=== PATIENT | male | born 1935 | race African-American/Black ===

== ENCOUNTER 2017-08-27 11:26 | Inpatient (IN) | payer MEDICARE, OTHER ==
[~2017-08-27] VITALS: Ht 167.6 cm; Wt 64.4 kg
[2017-08-27] VITALS (36 sets, daily range): BP systolic 75–148; BP diastolic 43–99
[2017-08-27] MEDS ORDERED: PIPERACILLIN/TAZ 3.375G PREMIX 50 ML IV ONE (12:15)
[2017-08-27] MEDS ORDERED: VANCOMYCIN 1 G PREMIX 200 ML IV SCH (12:15)
[2017-08-27] MEDS ORDERED: ACETAMINOPHEN 650MG SUPP PR ONE (12:15)
[2017-08-27 12:22] LABS: BASOPHILS % 0.6 % (0.0-2.0); EOSINOPHILS % 0.1 % (0.0-5.0); HEMOGLOBIN. 11.8 g/dL (14.0-18.0); LYMPHOCYTES % 14.8 % (20.0-50.0); MEAN CORPUSCULAR HEMOGLOBIN 27.1 pg (28.0-32.0); MEAN CORPUSCULAR VOLUME 82.7 fL (80.0-94.0); MEAN PLATELET VOLUME 8.8 fl (7.4-10.4); NEUTROPHILS % 72.5 % (40.0-76.0); PLATELET 291 x1000/uL (130-400); RED BLOOD CELL COUNT 4.35 mill/uL (4.7-6.1); RED CELL DISTRIBUTION WIDTH 16.6 % (11.6-14.6)
[2017-08-27] MEDS ORDERED: PROPOFOL 10MG/ML 100ML 100 ML IV ONE (12:30)
[2017-08-27] MEDS ORDERED: SUCCINYLCHOLINE CHLORIDE 200MG/10ML VIAL IV ONE ×2 (12:30→14:03)
[2017-08-27] MEDS ORDERED: ETOMIDATE 2MG/ML 10ML VIAL IV ONE ×2 (12:30→14:03)
[2017-08-27] MEDS ORDERED: LORAZEPAM 2MG/ML CPJ IV ONE (12:30)
[2017-08-27 12:31] LABS: INR 1.1; PARTIAL THROMBOPLASTIN TIME 26.8 sec (23.4-31.0); PROTHROMBIN TIME 11.3 sec (9.4-11.6)
[2017-08-27 12:43] LABS: CHLORIDE 100 mEq/L (98-107)
[2017-08-27 12:44] LABS: TROPONIN I 0.02 ng/mL (0.00-0.04)
[2017-08-27 12:52] LABS: CARBON DIOXIDE 41 mEq/L (21-32)
[2017-08-27] MEDS ORDERED: KCL 20MEQ/100ML PREMIX 100 ML IV ONE (13:00)
[2017-08-27 13:07] LABS: BG BASE EXCESS 12.8 mmol/L (-2.0-2.0); BG CARBOXYHEMOGLOBIN 0.2 % (0.5-1.5); BG DEOXYHEMOGLOBIN 2.5 % (0.0-5.0); BG HCO3 ACT 35.1 mmol/L (22.0-26.0); BG OXYGEN SATURATION 97.5 % (92.0-98.5); BG OXYHEMOGLOBIN 97.3 % (94.0-97.0); BG PCO2 36.6 mmHg (35.0-45.0); BG SAMPLE SITE RIGHT RADIAL; BG TIDAL VOLUME(mL) 550 mL; BG TOTAL HEMOGLOBIN 14.2 g/dL (12.0-18.0); BG VENT MODE VENT - A/C; BG VENT RATE 14 set
[2017-08-27] MEDS ORDERED: DILTIAZEM HCL 5MG/ML 5ML VIAL IV ONE (13:15)
[2017-08-27] MEDS ORDERED: ONDANSETRON HCL 4MG/2ML VIAL IV PRN (14:15)
[2017-08-27] MEDS ORDERED: ACETAMINOPHEN 650MG SUPP PR PRN (14:15)
[2017-08-27] MEDS ORDERED: DILTIAZEM HCL 125 MG in DEXT 5% WATER 100 ML IV PRN (14:15)
[2017-08-27] MEDS ORDERED: PHENYLEPHRINE 10 MG in DEXT 5% WATER 249 ML IV PRN (14:15)
[2017-08-27] MEDS ORDERED: CLONIDINE 0.1MG TABLET PO PRN (14:15)
[2017-08-27 14:30] LABS: CLARITY URINE CLEAR (CLEAR); COLOR URINE YELLOW (YELLOW); GLUCOSE URINE NEGATIVE (NEGATIVE); KETONES URINE NEGATIVE (NEGATIVE); LEUKOCYTE ESTERASE URINE NEGATIVE (NEGATIVE); NITRITE URINE NEGATIVE (NEGATIVE); OCCULT BLOOD URINE NEGATIVE (NEGATIVE); PROTEIN URINE 1+ (NEGATIVE); UROBILINOGEN URINE 0.2 E.U./dL (0.2-1.0)
[2017-08-27] MEDS ORDERED: PROPOFOL 10MG/ML 100ML 100 ML IV PRN (14:30)
[2017-08-27] MEDS ORDERED: IPRATROPIUM/ALBUTEROL 0.5-3(2.5)MG/3ML NEB HHN PRN (14:30)
[2017-08-27 15:01] LABS: CREATINE KINASE 90 IU/L (39-308)
[2017-08-27 15:14] LABS: *AMPHETAMINES SCREEN URINE NEGATIVE (NEGATIVE); *BARBITURATES SCREEN URINE NEGATIVE (NEGATIVE); *BENZODIAZEPINES SCREEN URINE NEGATIVE (NEGATIVE); *COCAINE SCREEN URINE NEGATIVE (NEGATIVE); CANNABINOID URINE SCREEN NEGATIVE (NEGATIVE); METHADONE URINE SCREEN NEGATIVE (NEGATIVE); OPIATES URINE SCREEN NEGATIVE (NEGATIVE); PHENCYCLIDINE URINE SCREEN NEGATIVE (NEGATIVE)
[2017-08-27 15:44] LABS: HEPATITIS B SURFACE ANTIGEN NEGATIVE
[2017-08-27] MEDS: DEXT 5%/0.45% NACL 1000ML 1,000 ML IV SCH (15:57)
[2017-08-27 16:12] LABS: HEPATITIS B CORE AB IGM NEGATIVE
[2017-08-27 16:14] LABS: HEPATITIS A AB IGM NEGATIVE (NEGATIVE)
[2017-08-27] MEDS: PANTOPRAZOLE SODIUM 40 MG/VIAL IV SCH (16:32)
[2017-08-27] MEDS: ENOXAPARIN 40MG/0.4ML SYR SUBCUT SCH (16:32)
[2017-08-27] MEDS ORDERED: KEPP500 NG (17:06)
[2017-08-27] MEDS ORDERED: DIVA-18 NG (17:06)
[2017-08-27] MEDS ORDERED: ASPI-1159 NG (17:06)
[2017-08-27] MEDS ORDERED: METO25TA6 NG (17:06)
[2017-08-27] MEDS ORDERED: LACT1TAB2 NG (17:06)
[2017-08-27] MEDS ORDERED: ACET-2178 NG (17:06)
[2017-08-27] MEDS ORDERED: IPRA3AMP9 HHN (17:06)
[2017-08-27] MEDS ORDERED: MEMA10TA2 NG (17:06)
[2017-08-27] MEDS ORDERED: SIMV80TA70 NG (17:06)
[2017-08-27] MEDS ORDERED: LOV40 SUBCUT (17:06)
[2017-08-27] MEDS ORDERED: MULT-1146 NG (17:06)
[2017-08-27] MEDS ORDERED: IBUP-2028 NG (17:06)
[2017-08-27] MEDS ORDERED: ALBU18HF2 IH (17:06)
[2017-08-27] MEDS ORDERED: NIFE30TA94 NG (17:06)
[2017-08-27] MEDS ORDERED: FURO-151 NG (17:06)
[2017-08-27] MEDS: PHENYLEPHRINE 10 MG in DEXTROSE 5% WATER 250 ML IV PRN ×2 (17:51→21:09)
[2017-08-27] MEDS: PIPERACILLIN/TAZ 3.375G PREMIX 50 ML IV SCH ×2 (18:57→23:58)
[2017-08-27] MEDS: IPRATROPIUM/ALBUTEROL 0.5-3(2.5)MG/3ML NEB HHN SCH (20:30)
[2017-08-28] VITALS (101 sets, daily range): BP systolic 64–169; BP diastolic 41–106
[2017-08-28] MEDS: PHENYLEPHRINE 10 MG in DEXTROSE 5% WATER 250 ML IV PRN ×3 (00:55→14:31)
[2017-08-28] MEDS: DEXT 5%/0.45% NACL 1000ML 1,000 ML IV SCH ×2 (03:40→22:19)
[2017-08-28 05:25] LABS: BASOPHILS % 0.7 % (0.0-2.0); EOSINOPHILS % 0.4 % (0.0-5.0); HEMATOCRIT. 31.8 % (42.0-52.0); HEMOGLOBIN. 10.5 g/dL (14.0-18.0); LYMPHOCYTES % 12.1 % (20.0-50.0); MEAN CORPUSCULAR HEMOGLOBIN 27.4 pg (28.0-32.0); MEAN CORPUSCULAR VOLUME 82.8 fL (80.0-94.0); MEAN PLATELET VOLUME 9.1 fl (7.4-10.4); MONOCYTES % 13.1 % (2.0-8.0); NEUTROPHILS % 73.7 % (40.0-76.0); PLATELET 250 x1000/uL (130-400); RED BLOOD CELL COUNT 3.84 mill/uL (4.7-6.1); RED CELL DISTRIBUTION WIDTH 16.4 % (11.6-14.6)
[2017-08-28] MEDS: PIPERACILLIN/TAZ 3.375G PREMIX 50 ML IV SCH ×3 (05:44→19:49)
[2017-08-28 06:13] LABS: CHLORIDE 99 mEq/L (98-107); LDL CHOLESTEROL 31 mg/dL (5-100)
[2017-08-28 06:16] LABS: HDL CHOLESTEROL 20 mg/dL (40-59); TROPONIN I 0.03 ng/mL (0.00-0.04)
[2017-08-28] MEDS ORDERED: VANCOMYCIN 1 G PREMIX 200 ML IV SCH (07:00)
[2017-08-28 07:22] LABS: CARBON DIOXIDE 40 mEq/L (21-32)
[2017-08-28] MEDS: IPRATROPIUM/ALBUTEROL 0.5-3(2.5)MG/3ML NEB HHN SCH ×3 (07:53→20:08)
[2017-08-28] MEDS ORDERED: DEXTROSE 50% WATER 50ML SYRINGE IV PRN (08:00)
[2017-08-28 08:28] LABS: BG BASE EXCESS 14.1 mmol/L (-2.0-2.0); BG CARBOXYHEMOGLOBIN 0.2 % (0.5-1.5); BG DEOXYHEMOGLOBIN 1.3 % (0.0-5.0); BG FRACTION INSPIRED OXYGEN 60; BG HCO3 ACT 38.3 mmol/L (22.0-26.0); BG METHEMOGLOBIN 1.1 % (0.0-1.5); BG OXYGEN SATURATION 98.7 % (92.0-98.5); BG OXYHEMOGLOBIN 97.4 % (94.0-97.0); BG PCO2 46.3 mmHg (35.0-45.0); BG PH 7.535 (7.350-7.450); BG PO2 197.6 mmHg (75.0-100.0); BG SAMPLE SITE RIGHT RADIAL; BG TIDAL VOLUME(mL) 450 mL; BG TOTAL HEMOGLOBIN 11.1 g/dL (12.0-18.0); BG VENT MODE VENT - A/C; BG VENT RATE 12 set
[2017-08-28] MEDS ORDERED: LIDOCAINE HCL 1% 20ML VIAL (Pyxis) INJ ONE (08:28)
[2017-08-28] MEDS ORDERED: POTASSIUM CHLORIDE INJ 60 MEQ in DEXT 5% WATER 500 ML IV NR (09:30)
[2017-08-28] MEDS: PANTOPRAZOLE SODIUM 40 MG/VIAL IV SCH (09:55)
[2017-08-28] MEDS: ENOXAPARIN 40MG/0.4ML SYR SUBCUT SCH (10:43)
[2017-08-28] MEDS ORDERED: LEVETIRACETAM 500 MG in SODIUM CHLORIDE 0.9% 100 ML IV SCH (10:45)
[2017-08-28] MEDS: BLOOD SUGAR DIAGNOSTIC STRIP TEST SCH ×3 (11:22→20:48)
[2017-08-28] MEDS: INSULIN LISPRO 100 UNITS/ML SUBCUT SCH ×3 (11:23→20:48)
[2017-08-28 11:45] LABS: T4 FREE 1.29 ng/dL (0.76-1.46)
[2017-08-28] MEDS: LEVETIRACETAM 500MG PREMIX 100 ML IV SCH ×2 (11:47→20:47)
[2017-08-28 11:55] LABS: AMMONIA 25 uMol/L (<32)
[2017-08-28 12:09] LABS: VITAMIN B12 SERUM 1080 pg/mL (211-911)
[2017-08-28] MEDS ORDERED: IOHEXOL-350 100 ML BOTTLE ONE (12:50)
[2017-08-28 13:00] LABS: FOLIC ACID (FOLATE) SERUM > 20.00 ng/mL (>5.38)
[2017-08-28] MEDS: VANCOMYCIN 1250MG in DEXTROSE 5% WATER 250ML IV SCH (17:21)
[2017-08-29] VITALS (94 sets, daily range): BP systolic 61–132; BP diastolic 41–86
[2017-08-29] MEDS: PIPERACILLIN/TAZ 3.375G PREMIX 50 ML IV SCH ×5 (01:45→23:37)
[2017-08-29] MEDS: IPRATROPIUM/ALBUTEROL 0.5-3(2.5)MG/3ML NEB HHN SCH ×4 (01:53→19:48)
[2017-08-29 05:10] LABS: BASOPHILS % 0.3 % (0.0-2.0); MEAN PLATELET VOLUME 8.7 fl (7.4-10.4); RED CELL DISTRIBUTION WIDTH 16.1 % (11.6-14.6)
[2017-08-29 05:28] LABS: CARBON DIOXIDE 34 mEq/L (21-32); CHLORIDE 99 mEq/L (98-107); PHOSPHORUS 2.9 mg/dL (2.5-4.9)
[2017-08-29 05:34] LABS: HEMATOCRIT. 28.8 % (42.0-52.0); HEMOGLOBIN. 9.7 g/dL (14.0-18.0); LYMPHOCYTES % 13.8 % (20.0-50.0); MEAN CORPUSCULAR HEMOGLOBIN 27.5 pg (28.0-32.0); MEAN CORPUSCULAR VOLUME 81.8 fL (80.0-94.0); MONOCYTES % 10.7 % (2.0-8.0); NEUTROPHILS % 73.2 % (40.0-76.0); PLATELET 233 x1000/uL (130-400); RED BLOOD CELL COUNT 3.52 mill/uL (4.7-6.1)
[2017-08-29] MEDS: BLOOD SUGAR DIAGNOSTIC STRIP TEST SCH ×4 (05:58→20:13)
[2017-08-29] MEDS: INSULIN LISPRO 100 UNITS/ML SUBCUT SCH ×4 (06:04→20:13)
[2017-08-29 07:19] LABS: BG CARBOXYHEMOGLOBIN 0.3 % (0.5-1.5); BG FRACTION INSPIRED OXYGEN 35; BG HCO3 ACT 33.8 mmol/L (22.0-26.0); BG METHEMOGLOBIN 0.2 % (0.0-1.5); BG OXYHEMOGLOBIN 97.5 % (94.0-97.0); BG PCO2 42.1 mmHg (35.0-45.0); BG PH 7.522 (7.350-7.450); BG PO2 111.1 mmHg (75.0-100.0); BG SAMPLE SITE RIGHT RADIAL; BG TIDAL VOLUME(mL) 450 mL; BG TOTAL HEMOGLOBIN 9.8 g/dL (12.0-18.0); BG VENT MODE VENT - A/C; BG VENT RATE 10 set
[2017-08-29] MEDS: LEVETIRACETAM 500MG PREMIX 100 ML IV SCH ×2 (09:04→20:14)
[2017-08-29] MEDS: PANTOPRAZOLE SODIUM 40 MG/VIAL IV SCH (09:04)
[2017-08-29] MEDS: ENOXAPARIN 40MG/0.4ML SYR SUBCUT SCH (09:05)
[2017-08-29] MEDS ORDERED: POTASSIUM CHLORIDE INJ 60 MEQ in DEXT 5% WATER 500 ML IV SCH (10:00)
[2017-08-29] MEDS: VANCOMYCIN 1250MG in DEXTROSE 5% WATER 250ML IV SCH (12:11)
[2017-08-29] MEDS: PHENYLEPHRINE 10 MG in DEXTROSE 5% WATER 250 ML IV PRN (13:15)
[2017-08-30] VITALS (61 sets, daily range): BP systolic 79–135; BP diastolic 51–92
[2017-08-30] MEDS: IPRATROPIUM/ALBUTEROL 0.5-3(2.5)MG/3ML NEB HHN SCH ×3 (08:00→20:21)
[2017-08-30 09:13] LABS: BASOPHILS % 0.3 % (0.0-2.0); EOSINOPHILS % 3.2 % (0.0-5.0); HEMATOCRIT. 30.8 % (42.0-52.0); HEMOGLOBIN. 10.1 g/dL (14.0-18.0); LYMPHOCYTES % 16.3 % (20.0-50.0); MEAN CORPUSCULAR HEMOGLOBIN 26.9 pg (28.0-32.0); MEAN CORPUSCULAR VOLUME 82.2 fL (80.0-94.0); MEAN PLATELET VOLUME 8.8 fl (7.4-10.4); MONOCYTES % 10.4 % (2.0-8.0); NEUTROPHILS % 69.8 % (40.0-76.0); PLATELET 305 x1000/uL (130-400); RED BLOOD CELL COUNT 3.74 mill/uL (4.7-6.1)
[2017-08-30 09:29] LABS: BG BASE EXCESS 9.8 mmol/L (-2.0-2.0); BG CARBOXYHEMOGLOBIN 0.3 % (0.5-1.5); BG DEOXYHEMOGLOBIN 3.4 % (0.0-5.0); BG FRACTION INSPIRED OXYGEN 30; BG HCO3 ACT 33.8 mmol/L (22.0-26.0); BG METHEMOGLOBIN 0.4 % (0.0-1.5); BG OXYGEN SATURATION 96.6 % (92.0-98.5); BG OXYHEMOGLOBIN 95.9 % (94.0-97.0); BG PH 7.513 (7.350-7.450); BG PO2 89.1 mmHg (75.0-100.0); BG SAMPLE SITE RIGHT RADIAL; BG TIDAL VOLUME(mL) 450 mL; BG TOTAL HEMOGLOBIN 11.1 g/dL (12.0-18.0); BG VENT MODE VENT - A/C; BG VENT RATE 10 set
[2017-08-30] MEDS: BLOOD SUGAR DIAGNOSTIC STRIP TEST SCH ×3 (11:08→20:43)
[2017-08-30] MEDS: INSULIN LISPRO 100 UNITS/ML SUBCUT SCH ×4 (11:09→20:43)
[2017-08-30] MEDS: PIPERACILLIN/TAZ 3.375G PREMIX 50 ML IV SCH ×2 (12:00→18:00)
[2017-08-30 12:10] LABS: BG BASE EXCESS 10.1 mmol/L (-2.0-2.0); BG CARBOXYHEMOGLOBIN 0.3 % (0.5-1.5); BG DEOXYHEMOGLOBIN 2.7 % (0.0-5.0); BG FRACTION INSPIRED OXYGEN 30; BG HCO3 ACT 34.2 mmol/L (22.0-26.0); BG METHEMOGLOBIN 0.3 % (0.0-1.5); BG OXYGEN SATURATION 97.3 % (92.0-98.5); BG OXYHEMOGLOBIN 96.7 % (94.0-97.0); BG PCO2 44.1 mmHg (35.0-45.0); BG PH 7.507 (7.350-7.450); BG PO2 92.5 mmHg (75.0-100.0); BG PRESSURE SUPPORT 8; BG SAMPLE SITE RIGHT RADIAL; BG TIDAL VOLUME(mL) 450 mL; BG TOTAL HEMOGLOBIN 10.8 g/dL (12.0-18.0); BG VENT MODE VENT - SIMV; BG VENT RATE 10 set
[2017-08-30 13:08] LABS: CARBON DIOXIDE 32 mEq/L (21-32); CHLORIDE 99 mEq/L (98-107)
[2017-08-30] MEDS: MORPHINE SULFATE 2 MG/ML CPJ (NOT FOR IM USE) IV PRN (16:04)
[2017-08-30] MEDS: CARVEDILOL 3.125 MG TABLET PO SCH (20:37)
[2017-08-30] MEDS: LEVETIRACETAM 500MG PREMIX 100 ML IV SCH (20:43)
[2017-08-31] VITALS (40 sets, daily range): BP systolic 91–150; BP diastolic 58–117
[2017-08-31] MEDS: PIPERACILLIN/TAZ 3.375G PREMIX 50 ML IV SCH ×4 (00:03→18:20)
[2017-08-31] MEDS: MORPHINE SULFATE 2 MG/ML CPJ (NOT FOR IM USE) IV PRN (00:22)
[2017-08-31] MEDS: IPRATROPIUM/ALBUTEROL 0.5-3(2.5)MG/3ML NEB HHN SCH ×5 (00:26→20:29)
[2017-08-31] MEDS: BLOOD SUGAR DIAGNOSTIC STRIP TEST SCH ×4 (06:16→21:25)
[2017-08-31] MEDS: INSULIN LISPRO 100 UNITS/ML SUBCUT SCH ×4 (06:16→21:00)
[2017-08-31 07:26] LABS: BG BASE EXCESS 6.6 mmol/L (-2.0-2.0); BG CARBOXYHEMOGLOBIN 0.3 % (0.5-1.5); BG DEOXYHEMOGLOBIN 3.2 % (0.0-5.0); BG HCO3 ACT 30.5 mmol/L (22.0-26.0); BG METHEMOGLOBIN 0.2 % (0.0-1.5); BG OXYGEN SATURATION 96.8 % (92.0-98.5); BG OXYHEMOGLOBIN 96.3 % (94.0-97.0); BG PO2 90.2 mmHg (75.0-100.0); BG SAMPLE SITE RIGHT RADIAL; BG TIDAL VOLUME(mL) 450 mL; BG VENT MODE VENT - SIMV; BG VENT RATE 10 set
[2017-08-31] MEDS: CARVEDILOL 3.125 MG TABLET PO SCH ×2 (09:32→21:00)
[2017-08-31] MEDS: LEVETIRACETAM 500MG PREMIX 100 ML IV SCH ×2 (09:33→21:37)
[2017-08-31] MEDS: PANTOPRAZOLE SODIUM 40 MG/VIAL IV SCH (09:33)
[2017-08-31] MEDS: ENOXAPARIN 40MG/0.4ML SYR SUBCUT SCH (09:34)
[2017-08-31 13:07] LABS: TOTAL IRON BINDING CAPACITY 163 ug/dL (250-450)
[2017-08-31] MEDS: ENOXAPARIN 60MG/0.6ML SYR SUBCUT SCH (21:17)
[2017-09-01] VITALS (39 sets, daily range): BP systolic 79–161; BP diastolic 23–138
[2017-09-01] MEDS: PIPERACILLIN/TAZ 3.375G PREMIX 50 ML IV SCH ×5 (00:11→23:24)
[2017-09-01] MEDS: IPRATROPIUM/ALBUTEROL 0.5-3(2.5)MG/3ML NEB HHN SCH ×6 (00:18→20:06)
[2017-09-01 05:26] LABS: CARBON DIOXIDE 30 mEq/L (21-32); CHLORIDE 102 mEq/L (98-107)
[2017-09-01 06:03] LABS: BASOPHILS % 0.4 % (0.0-2.0); EOSINOPHILS % 2.2 % (0.0-5.0); HEMATOCRIT. 29.9 % (42.0-52.0); HEMOGLOBIN. 9.9 g/dL (14.0-18.0); LYMPHOCYTES % 13.9 % (20.0-50.0); MEAN CORPUSCULAR HEMOGLOBIN 27.2 pg (28.0-32.0); MEAN PLATELET VOLUME 8.2 fl (7.4-10.4); MONOCYTES % 9.8 % (2.0-8.0); NEUTROPHILS % 73.7 % (40.0-76.0); PLATELET 376 x1000/uL (130-400); RED BLOOD CELL COUNT 3.64 mill/uL (4.7-6.1); RED CELL DISTRIBUTION WIDTH 16.1 % (11.6-14.6)
[2017-09-01] MEDS: INSULIN LISPRO 100 UNITS/ML SUBCUT SCH ×4 (06:19→20:42)
[2017-09-01] MEDS: BLOOD SUGAR DIAGNOSTIC STRIP TEST SCH ×4 (06:19→20:42)
[2017-09-01 07:31] LABS: BG BASE EXCESS 3.4 mmol/L (-2.0-2.0); BG CARBOXYHEMOGLOBIN 0.3 % (0.5-1.5); BG DEOXYHEMOGLOBIN 2.2 % (0.0-5.0); BG HCO3 ACT 27.1 mmol/L (22.0-26.0); BG METHEMOGLOBIN 0.3 % (0.0-1.5); BG OXYGEN SATURATION 97.8 % (92.0-98.5); BG OXYHEMOGLOBIN 97.2 % (94.0-97.0); BG PCO2 37.8 mmHg (35.0-45.0); BG PH 7.474 (7.350-7.450); BG PO2 98.7 mmHg (75.0-100.0); BG SAMPLE SITE RIGHT RADIAL; BG TIDAL VOLUME(mL) 450 mL; BG TOTAL HEMOGLOBIN 10.6 g/dL (12.0-18.0); BG VENT MODE VENT - SIMV; BG VENT RATE 8 set
[2017-09-01] MEDS: PANTOPRAZOLE SODIUM 40 MG/VIAL IV SCH (08:12)
[2017-09-01] MEDS: LEVETIRACETAM 500MG PREMIX 100 ML IV SCH ×2 (08:13→20:38)
[2017-09-01] MEDS: CARVEDILOL 3.125 MG TABLET PO SCH ×2 (08:15→18:38)
[2017-09-01] MEDS: ENOXAPARIN 60MG/0.6ML SYR SUBCUT SCH ×2 (08:16→20:37)
[2017-09-01 14:01] LABS: BG BASE EXCESS 4.7 mmol/L (-2.0-2.0); BG CARBOXYHEMOGLOBIN 0.2 % (0.5-1.5); BG DEOXYHEMOGLOBIN 2.4 % (0.0-5.0); BG HCO3 ACT 28.4 mmol/L (22.0-26.0); BG METHEMOGLOBIN 0.1 % (0.0-1.5); BG OXYGEN SATURATION 97.6 % (92.0-98.5); BG OXYHEMOGLOBIN 97.3 % (94.0-97.0); BG PO2 98.6 mmHg (75.0-100.0); BG SAMPLE SITE RIGHT RADIAL; BG TIDAL VOLUME(mL) 450 mL; BG TOTAL HEMOGLOBIN 12.4 g/dL (12.0-18.0); BG VENT MODE VENT - SIMV; BG VENT RATE 6 set
[2017-09-01] MEDS: FERROUS SULFATE 300MG/5ML UDC PO SCH (18:31)
[2017-09-02] VITALS (50 sets, daily range): BP systolic 82–156; BP diastolic 47–114
[2017-09-02] MEDS: IPRATROPIUM/ALBUTEROL 0.5-3(2.5)MG/3ML NEB HHN SCH ×7 (00:03→23:39)
[2017-09-02 05:12] LABS: BASOPHILS % 0.5 % (0.0-2.0); EOSINOPHILS % 2.2 % (0.0-5.0); HEMATOCRIT. 30.3 % (42.0-52.0); HEMOGLOBIN. 10.1 g/dL (14.0-18.0); LYMPHOCYTES % 15.5 % (20.0-50.0); MEAN CORPUSCULAR HEMOGLOBIN 27.6 pg (28.0-32.0); MEAN CORPUSCULAR VOLUME 82.8 fL (80.0-94.0); MEAN PLATELET VOLUME 7.7 fl (7.4-10.4); MONOCYTES % 8.7 % (2.0-8.0); NEUTROPHILS % 73.1 % (40.0-76.0); PLATELET 425 x1000/uL (130-400); RED BLOOD CELL COUNT 3.66 mill/uL (4.7-6.1); RED CELL DISTRIBUTION WIDTH 16.2 % (11.6-14.6)
[2017-09-02] MEDS: PIPERACILLIN/TAZ 3.375G PREMIX 50 ML IV SCH ×3 (05:29→18:59)
[2017-09-02] MEDS: BLOOD SUGAR DIAGNOSTIC STRIP TEST SCH ×4 (05:30→20:31)
[2017-09-02 06:05] LABS: CARBON DIOXIDE 28 mEq/L (21-32); CHLORIDE 104 mEq/L (98-107)
[2017-09-02] MEDS: INSULIN LISPRO 100 UNITS/ML SUBCUT SCH ×4 (07:00→20:32)
[2017-09-02 07:25] LABS: BG BASE EXCESS 5.3 mmol/L (-2.0-2.0); BG CARBOXYHEMOGLOBIN 0.2 % (0.5-1.5); BG DEOXYHEMOGLOBIN 2.9 % (0.0-5.0); BG FRACTION INSPIRED OXYGEN 30; BG HCO3 ACT 29.3 mmol/L (22.0-26.0); BG METHEMOGLOBIN 1.4 % (0.0-1.5); BG OXYGEN SATURATION 97.1 % (92.0-98.5); BG OXYHEMOGLOBIN 95.5 % (94.0-97.0); BG PCO2 40.7 mmHg (35.0-45.0); BG PH 7.475 (7.350-7.450); BG PO2 108.9 mmHg (75.0-100.0); BG PRESSURE SUPPORT 8; BG SAMPLE SITE RIGHT RADIAL; BG TIDAL VOLUME(mL) 450 mL; BG VENT MODE VENT - SIMV; BG VENT RATE 6 set
[2017-09-02] MEDS: PANTOPRAZOLE SODIUM 40 MG/VIAL IV SCH (09:20)
[2017-09-02] MEDS: FERROUS SULFATE 300MG/5ML UDC PO SCH ×2 (09:20→18:59)
[2017-09-02] MEDS: CARVEDILOL 3.125 MG TABLET PO SCH ×2 (09:21→20:31)
[2017-09-02] MEDS: ENOXAPARIN 60MG/0.6ML SYR SUBCUT SCH ×2 (09:23→20:31)
[2017-09-02] MEDS: LEVETIRACETAM 500MG PREMIX 100 ML IV SCH ×2 (09:37→20:31)
[2017-09-02 12:35] LABS: BG BASE EXCESS 5.5 mmol/L (-2.0-2.0); BG CARBOXYHEMOGLOBIN 0.3 % (0.5-1.5); BG DEOXYHEMOGLOBIN 1.6 % (0.0-5.0); BG FRACTION INSPIRED OXYGEN 30; BG HCO3 ACT 29.3 mmol/L (22.0-26.0); BG METHEMOGLOBIN 0.4 % (0.0-1.5); BG OXYGEN SATURATION 98.4 % (92.0-98.5); BG OXYHEMOGLOBIN 97.7 % (94.0-97.0); BG PCO2 39.8 mmHg (35.0-45.0); BG PH 7.485 (7.350-7.450); BG PO2 126.3 mmHg (75.0-100.0); BG SAMPLE SITE RIGHT RADIAL; BG TOTAL HEMOGLOBIN 10.3 g/dL (12.0-18.0); BG VENT MODE T-TUBE
[2017-09-03] VITALS (43 sets, daily range): BP systolic 89–163; BP diastolic 39–132
[2017-09-03] MEDS: PIPERACILLIN/TAZ 3.375G PREMIX 50 ML IV SCH ×2 (01:07→06:15)
[2017-09-03] MEDS: IPRATROPIUM/ALBUTEROL 0.5-3(2.5)MG/3ML NEB HHN SCH ×5 (03:48→20:08)
[2017-09-03] MEDS: INSULIN LISPRO 100 UNITS/ML SUBCUT SCH ×4 (06:15→20:17)
[2017-09-03] MEDS: BLOOD SUGAR DIAGNOSTIC STRIP TEST SCH ×4 (06:15→20:18)
[2017-09-03 09:17] LABS: BASOPHILS % 0.6 % (0.0-2.0); EOSINOPHILS % 1.8 % (0.0-5.0); HEMATOCRIT. 33.2 % (42.0-52.0); HEMOGLOBIN. 11.1 g/dL (14.0-18.0); LYMPHOCYTES % 12.3 % (20.0-50.0); MEAN CORPUSCULAR HEMOGLOBIN 27.5 pg (28.0-32.0); MEAN CORPUSCULAR VOLUME 82.4 fL (80.0-94.0); MEAN PLATELET VOLUME 7.4 fl (7.4-10.4); MONOCYTES % 8.2 % (2.0-8.0); NEUTROPHILS % 77.1 % (40.0-76.0); PLATELET 510 x1000/uL (130-400); RED BLOOD CELL COUNT 4.03 mill/uL (4.7-6.1); RED CELL DISTRIBUTION WIDTH 16.2 % (11.6-14.6)
[2017-09-03 09:34] LABS: CARBON DIOXIDE 28 mEq/L (21-32); CHLORIDE 105 mEq/L (98-107)
[2017-09-03] MEDS: PANTOPRAZOLE SODIUM 40 MG/VIAL IV SCH (10:07)
[2017-09-03] MEDS: CARVEDILOL 3.125 MG TABLET PO SCH ×2 (10:07→20:18)
[2017-09-03] MEDS: FERROUS SULFATE 300MG/5ML UDC PO SCH ×2 (10:07→17:26)
[2017-09-03] MEDS: ENOXAPARIN 60MG/0.6ML SYR SUBCUT SCH ×2 (10:08→20:17)
[2017-09-03] MEDS: LEVETIRACETAM 500MG PREMIX 100 ML IV SCH ×2 (10:16→20:18)
[2017-09-04] VITALS (15 sets, daily range): BP systolic 109–147; BP diastolic 71–91
[2017-09-04] MEDS: IPRATROPIUM/ALBUTEROL 0.5-3(2.5)MG/3ML NEB HHN SCH ×6 (00:30→20:27)
[2017-09-04 06:33] LABS: BASOPHILS % 0.6 % (0.0-2.0); EOSINOPHILS % 1.2 % (0.0-5.0); HEMATOCRIT. 32.3 % (42.0-52.0); HEMOGLOBIN. 10.7 g/dL (14.0-18.0); LYMPHOCYTES % 14.7 % (20.0-50.0); MEAN CORPUSCULAR HEMOGLOBIN 27.4 pg (28.0-32.0); MEAN CORPUSCULAR VOLUME 82.7 fL (80.0-94.0); MEAN PLATELET VOLUME 7.6 fl (7.4-10.4); MONOCYTES % 9.3 % (2.0-8.0); NEUTROPHILS % 74.2 % (40.0-76.0); PLATELET 545 x1000/uL (130-400); RED CELL DISTRIBUTION WIDTH 16.3 % (11.6-14.6)
[2017-09-04 06:57] LABS: CARBON DIOXIDE 29 mEq/L (21-32); CHLORIDE 107 mEq/L (98-107)
[2017-09-04] MEDS: BLOOD SUGAR DIAGNOSTIC STRIP TEST SCH ×4 (07:30→21:25)
[2017-09-04] MEDS: INSULIN LISPRO 100 UNITS/ML SUBCUT SCH ×4 (08:00→21:00)
[2017-09-04] MEDS: FERROUS SULFATE 300MG/5ML UDC PO SCH ×2 (08:56→18:05)
[2017-09-04] MEDS: PANTOPRAZOLE SODIUM 40 MG/VIAL IV SCH (08:56)
[2017-09-04] MEDS: LEVETIRACETAM 500MG PREMIX 100 ML IV SCH ×2 (08:56→21:25)
[2017-09-04] MEDS: CARVEDILOL 3.125 MG TABLET PO SCH (08:58)
[2017-09-04] MEDS: ENOXAPARIN 60MG/0.6ML SYR SUBCUT SCH ×2 (09:12→21:25)
[2017-09-04] MEDS ORDERED: POTASSIUM CHLORIDE 20MEQ/PACKET PO SCH (09:30)
[2017-09-04] MEDS: DILTIAZEM HCL 30MG TABLET PO SCH (13:06)
[2017-09-04] MEDS ORDERED: DEXT 5%/0.9% NACL 1,000 ML IV SCH (19:30)
[2017-09-04] MEDS: CARVEDILOL 6.25 MG TABLET PO SCH (21:24)
[2017-09-04] MEDS: DEXT 5%/0.9% NACL 1,000 ML IV SCH (21:27)
[2017-09-05] VITALS (11 sets, daily range): BP systolic 113–155; BP diastolic 69–98
[2017-09-05] MEDS: IPRATROPIUM/ALBUTEROL 0.5-3(2.5)MG/3ML NEB HHN SCH ×6 (00:12→20:48)
[2017-09-05] MEDS ORDERED: CEFAZOLIN 1000MG PREMIX 50 ML IV PRN (04:00)
[2017-09-05] MEDS: DILTIAZEM HCL 30MG TABLET PO SCH ×3 (06:05→21:23)
[2017-09-05 06:32] LABS: INR 1.2; PARTIAL THROMBOPLASTIN TIME 29.2 sec (23.4-31.0); PROTHROMBIN TIME 12.5 sec (9.4-11.6)
[2017-09-05 07:17] LABS: CARBON DIOXIDE 28 mEq/L (21-32); CHLORIDE 108 mEq/L (98-107)
[2017-09-05] MEDS: BLOOD SUGAR DIAGNOSTIC STRIP TEST SCH ×4 (07:30→20:06)
[2017-09-05 07:40] LABS: BASOPHILS % 0.5 % (0.0-2.0); EOSINOPHILS % 0.8 % (0.0-5.0); HEMATOCRIT. 32.6 % (42.0-52.0); HEMOGLOBIN. 10.7 g/dL (14.0-18.0); LYMPHOCYTES % 15.6 % (20.0-50.0); MEAN CORPUSCULAR HEMOGLOBIN 27.2 pg (28.0-32.0); MEAN CORPUSCULAR VOLUME 83.1 fL (80.0-94.0); MEAN PLATELET VOLUME 7.6 fl (7.4-10.4); MONOCYTES % 7.2 % (2.0-8.0); NEUTROPHILS % 75.9 % (40.0-76.0); PLATELET 534 x1000/uL (130-400); RED BLOOD CELL COUNT 3.92 mill/uL (4.7-6.1); RED CELL DISTRIBUTION WIDTH 16.7 % (11.6-14.6)
[2017-09-05] MEDS: INSULIN LISPRO 100 UNITS/ML SUBCUT SCH ×4 (08:00→20:06)
[2017-09-05] MEDS: ENOXAPARIN 60MG/0.6ML SYR SUBCUT SCH ×2 (09:00→20:10)
[2017-09-05] MEDS: CARVEDILOL 6.25 MG TABLET PO SCH ×2 (09:00→20:09)
[2017-09-05] MEDS: FERROUS SULFATE 300MG/5ML UDC PO SCH ×2 (09:00→17:17)
[2017-09-05] MEDS: PANTOPRAZOLE SODIUM 40 MG/VIAL IV SCH (09:25)
[2017-09-05] MEDS: LEVETIRACETAM 500MG PREMIX 100 ML IV SCH ×2 (09:25→21:23)
[2017-09-05] MEDS ORDERED: SIMETHICONE 40 MG/0.6 ML 30ML ONE (10:47)
[2017-09-05] MEDS ORDERED: SODIUM CHLORIDE 0.9% 10ML VIAL ONE (10:47)
[2017-09-05] MEDS ORDERED: DILTIAZEM HCL 5MG/ML 5ML VIAL IV PRN (11:00)
[2017-09-05] MEDS ORDERED: POTASSIUM CHLORIDE INJ 40 MEQ in DEXT 5% WATER 250 ML IV NR (11:00)
[2017-09-05] MEDS ORDERED: FENTANYL CITRATE/PF 50MCG/ML 2ML VIAL ONE (14:54)
[2017-09-05] MEDS ORDERED: MIDAZOLAM HCL 5 MG/5 ML VIAL ONE (14:54)
[2017-09-05] MEDS: DEXT 5%/0.9% NACL 1,000 ML IV SCH (17:18)
[2017-09-06] VITALS (23 sets, daily range): BP systolic 99–141; BP diastolic 55–107
[2017-09-06] MEDS: IPRATROPIUM/ALBUTEROL 0.5-3(2.5)MG/3ML NEB HHN SCH ×6 (00:35→20:47)
[2017-09-06] MEDS: DILTIAZEM HCL 30MG TABLET PO SCH (05:14)
[2017-09-06 06:56] LABS: BASOPHILS % 0.6 % (0.0-2.0); EOSINOPHILS % 1.3 % (0.0-5.0); HEMATOCRIT. 32.7 % (42.0-52.0); HEMOGLOBIN. 10.7 g/dL (14.0-18.0); LYMPHOCYTES % 16.3 % (20.0-50.0); MEAN CORPUSCULAR HEMOGLOBIN 26.9 pg (28.0-32.0); MEAN CORPUSCULAR VOLUME 82.1 fL (80.0-94.0); MEAN PLATELET VOLUME 7.3 fl (7.4-10.4); MONOCYTES % 5.9 % (2.0-8.0); NEUTROPHILS % 75.9 % (40.0-76.0); PLATELET 525 x1000/uL (130-400); RED BLOOD CELL COUNT 3.98 mill/uL (4.7-6.1); RED CELL DISTRIBUTION WIDTH 16.7 % (11.6-14.6)
[2017-09-06 07:26] LABS: CARBON DIOXIDE 26 mEq/L (21-32); CHLORIDE 108 mEq/L (98-107)
[2017-09-06] MEDS ORDERED: POTASSIUM CHLORIDE 20MEQ TABLET SR PO NR (08:00)
[2017-09-06] MEDS: BLOOD SUGAR DIAGNOSTIC STRIP TEST SCH ×3 (08:18→17:28)
[2017-09-06] MEDS: CARVEDILOL 6.25 MG TABLET PO SCH ×2 (08:48→20:55)
[2017-09-06] MEDS: FERROUS SULFATE 300MG/5ML UDC PO SCH ×2 (08:48→17:28)
[2017-09-06] MEDS: PANTOPRAZOLE SODIUM 40 MG/VIAL IV SCH (08:48)
[2017-09-06] MEDS: ENOXAPARIN 60MG/0.6ML SYR SUBCUT SCH ×2 (08:49→20:56)
[2017-09-06] MEDS: LEVETIRACETAM 500MG PREMIX 100 ML IV SCH ×2 (08:49→20:54)
[2017-09-06] MEDS: INSULIN LISPRO 100 UNITS/ML SUBCUT SCH ×2 (12:00→17:28)
[2017-09-06] MEDS: DILTIAZEM HCL 60MG TABLET PO SCH ×2 (14:11→21:01)
[2017-09-07] VITALS (13 sets, daily range): BP systolic 106–132; BP diastolic 65–97
[2017-09-07] MEDS: BLOOD SUGAR DIAGNOSTIC STRIP TEST SCH ×5 (00:22→23:30)
[2017-09-07] MEDS: IPRATROPIUM/ALBUTEROL 0.5-3(2.5)MG/3ML NEB HHN SCH ×6 (00:49→20:24)
[2017-09-07] MEDS: INSULIN LISPRO 100 UNITS/ML SUBCUT SCH ×5 (05:23→23:30)
[2017-09-07] MEDS: DILTIAZEM HCL 60MG TABLET PO SCH ×3 (05:24→21:15)
[2017-09-07 05:59] LABS: BASOPHILS % 0.4 % (0.0-2.0); EOSINOPHILS % 1.2 % (0.0-5.0); HEMATOCRIT. 30.5 % (42.0-52.0); HEMOGLOBIN. 10.2 g/dL (14.0-18.0); LYMPHOCYTES % 15.4 % (20.0-50.0); MEAN CORPUSCULAR HEMOGLOBIN 27.2 pg (28.0-32.0); MEAN CORPUSCULAR VOLUME 81.2 fL (80.0-94.0); MEAN PLATELET VOLUME 7.2 fl (7.4-10.4); MONOCYTES % 5.9 % (2.0-8.0); NEUTROPHILS % 77.1 % (40.0-76.0); PLATELET 446 x1000/uL (130-400); RED BLOOD CELL COUNT 3.76 mill/uL (4.7-6.1); RED CELL DISTRIBUTION WIDTH 16.7 % (11.6-14.6)
[2017-09-07 06:43] LABS: CARBON DIOXIDE 28 mEq/L (21-32); CHLORIDE 106 mEq/L (98-107)
[2017-09-07 07:24] LABS: PHOSPHORUS 1.9 mg/dL (2.5-4.9)
[2017-09-07] MEDS: PANTOPRAZOLE SODIUM 40 MG/VIAL IV SCH (08:57)
[2017-09-07] MEDS: FERROUS SULFATE 300MG/5ML UDC PO SCH ×2 (08:57→17:06)
[2017-09-07] MEDS: ENOXAPARIN 60MG/0.6ML SYR SUBCUT SCH ×2 (08:57→20:56)
[2017-09-07] MEDS: CARVEDILOL 6.25 MG TABLET PO SCH ×2 (08:58→20:55)
[2017-09-07] MEDS: LEVETIRACETAM 500MG PREMIX 100 ML IV SCH ×2 (08:59→20:54)
[2017-09-07] MEDS ORDERED: POTASSIUM PHOS,M-BASIC-D-BASIC 20 MMOL in DEXT 5% WATER 243.3333 ML IV NR (10:00)
[2017-09-08] VITALS (12 sets, daily range): BP systolic 97–149; BP diastolic 54–96
[2017-09-08] MEDS: IPRATROPIUM/ALBUTEROL 0.5-3(2.5)MG/3ML NEB HHN SCH ×6 (00:33→20:24)
[2017-09-08] MEDS: DILTIAZEM HCL 60MG TABLET PO SCH ×3 (05:10→21:25)
[2017-09-08 06:05] LABS: BASOPHILS % 1.1 % (0.0-2.0); EOSINOPHILS % 0.9 % (0.0-5.0); HEMATOCRIT. 33.1 % (42.0-52.0); MEAN CORPUSCULAR HEMOGLOBIN 27.1 pg (28.0-32.0); MEAN CORPUSCULAR VOLUME 81.9 fL (80.0-94.0); MEAN PLATELET VOLUME 7.2 fl (7.4-10.4); PLATELET 453 x1000/uL (130-400); RED BLOOD CELL COUNT 4.05 mill/uL (4.7-6.1); RED CELL DISTRIBUTION WIDTH 16.7 % (11.6-14.6)
[2017-09-08 08:31] LABS: CARBON DIOXIDE 30 mEq/L (21-32); CHLORIDE 104 mEq/L (98-107); PHOSPHORUS 2.4 mg/dL (2.5-4.9)
[2017-09-08] MEDS: CARVEDILOL 6.25 MG TABLET PO SCH ×2 (08:38→21:25)
[2017-09-08] MEDS: FERROUS SULFATE 300MG/5ML UDC PO SCH ×2 (08:38→16:14)
[2017-09-08] MEDS: ENOXAPARIN 60MG/0.6ML SYR SUBCUT SCH ×2 (08:38→21:29)
[2017-09-08] MEDS: PANTOPRAZOLE SODIUM 40 MG/VIAL IV SCH (08:38)
[2017-09-08] MEDS: LEVETIRACETAM 500MG PREMIX 100 ML IV SCH ×2 (08:38→21:25)
[2017-09-08] MEDS ORDERED: POTASSIUM CHLORIDE 20MEQ/PACKET GT NR ×2 (10:00→21:00)
[2017-09-08] MEDS: BLOOD SUGAR DIAGNOSTIC STRIP TEST SCH ×2 (11:11→17:20)
[2017-09-08] MEDS: INSULIN LISPRO 100 UNITS/ML SUBCUT SCH ×2 (11:16→17:21)
[2017-09-09] VITALS (13 sets, daily range): BP systolic 111–153; BP diastolic 55–102
[2017-09-09] MEDS: BLOOD SUGAR DIAGNOSTIC STRIP TEST SCH ×4 (00:10→17:46)
[2017-09-09] MEDS: IPRATROPIUM/ALBUTEROL 0.5-3(2.5)MG/3ML NEB HHN SCH ×6 (00:16→20:29)
[2017-09-09] MEDS: DILTIAZEM HCL 60MG TABLET PO SCH ×3 (05:27→21:43)
[2017-09-09] MEDS: INSULIN LISPRO 100 UNITS/ML SUBCUT SCH ×4 (05:33→17:46)
[2017-09-09 06:14] LABS: BASOPHILS % 0.8 % (0.0-2.0); EOSINOPHILS % 1.3 % (0.0-5.0); HEMATOCRIT. 34.5 % (42.0-52.0); HEMOGLOBIN. 11.3 g/dL (14.0-18.0); LYMPHOCYTES % 11.2 % (20.0-50.0); MEAN CORPUSCULAR HEMOGLOBIN 26.9 pg (28.0-32.0); MEAN CORPUSCULAR VOLUME 82.1 fL (80.0-94.0); MEAN PLATELET VOLUME 7.3 fl (7.4-10.4); MONOCYTES % 4.6 % (2.0-8.0); NEUTROPHILS % 82.1 % (40.0-76.0); PLATELET 429 x1000/uL (130-400); RED BLOOD CELL COUNT 4.21 mill/uL (4.7-6.1); RED CELL DISTRIBUTION WIDTH 16.8 % (11.6-14.6)
[2017-09-09 07:45] LABS: CARBON DIOXIDE 30 mEq/L (21-32); CHLORIDE 106 mEq/L (98-107); PHOSPHORUS 2.4 mg/dL (2.5-4.9)
[2017-09-09] MEDS ORDERED: POTASSIUM PHOS,M-BASIC-D-BASIC 15 MMOL in DEXT 5% WATER 245 ML IV SCH (09:00)
[2017-09-09] MEDS: LEVETIRACETAM 500MG PREMIX 100 ML IV SCH ×2 (09:28→21:33)
[2017-09-09] MEDS: PANTOPRAZOLE SODIUM 40 MG/VIAL IV SCH (09:28)
[2017-09-09] MEDS: FERROUS SULFATE 300MG/5ML UDC PO SCH ×2 (09:28→17:45)
[2017-09-09] MEDS: CARVEDILOL 6.25 MG TABLET PO SCH ×2 (09:28→21:43)
[2017-09-09] MEDS: ENOXAPARIN 60MG/0.6ML SYR SUBCUT SCH ×2 (09:29→21:34)
[2017-09-09] MEDS ORDERED: LACTOBACILLUS GG CAPSULE PO SCH (14:00)
== END 2017-09-09 22:25 | DRG 870 ==
LOC: ER 11:38 → ENRESERV 12:30 → MICUSO 13:11 → EDBEDREQ 13:17 → EDBEDREQTM 13:17 → CANBEDREQ 16:20 → 5EST 09-03 23:10
PROVIDERS: ADMIT Internal Medicine Nephrology; ATTEND Internal Medicine Nephrology
PROC: 5A1955Z Respiratory Ventilation, Greater than 96 Consecutive Hours (ICD-10-PCS; principal; 2017-08-27)
PROC: 0BH17EZ Insertion of Endotracheal Airway into Trachea, Via Natural or Artificial Opening (ICD-10-PCS; 2017-08-27)
PROC: 02HV33Z Insertion of Infusion Device into Superior Vena Cava, Percutaneous Approach (ICD-10-PCS; 2017-08-28)
PROC: B548ZZA Ultrasonography of Superior Vena Cava, Guidance (ICD-10-PCS; 2017-08-28)
PROC: 0DH63UZ Insertion of Feeding Device into Stomach, Percutaneous Approach (ICD-10-PCS; 2017-09-05)
DX: A41.9 Sepsis, unspecified organism (principal); J69.0 Pneumonitis due to inhalation of food and vomit; J96.01 Acute respiratory failure with hypoxia; R65.21 Severe sepsis with septic shock; G92 Toxic encephalopathy; I50.43 Acute on chronic combined systolic (congestive) and diastolic (congestive) heart failure; E44.0 Moderate protein-calorie malnutrition; E87.0 Hyperosmolality and hypernatremia; E87.3 Alkalosis; R13.12 Dysphagia, oropharyngeal phase; I42.9 Cardiomyopathy, unspecified; J98.11 Atelectasis; E11.9 Type 2 diabetes mellitus without complications; D50.9 Iron deficiency anemia, unspecified; G40.909 Epilepsy, unspecified, not intractable, without status epilepticus; F03.90 Unspecified dementia, unspecified severity, without behavioral disturbance, psychotic disturbance, mood disturbance, and anxiety; E87.6 Hypokalemia; I48.2 Chronic atrial fibrillation; I11.0 Hypertensive heart disease with heart failure; J44.9 Chronic obstructive pulmonary disease, unspecified; K42.9 Umbilical hernia without obstruction or gangrene; Z86.73 Personal history of transient ischemic attack (TIA), and cerebral infarction without residual deficits; Z79.899 Other long term (current) drug therapy; Z93.1 Gastrostomy status; Z68.22 Body mass index [BMI] 22.0-22.9, adult
CPT/HCPCS: 31500; 36415; 36569; 36600; 51702; 70450; 70496; 70498; 70551; 71010; 74176; 76937; 80048; 80053; 80061; 80165; 80305; 81001; 82140; 82270; 82375; 82550; 82607; 82746; 82805; 82962; 83036; 83540; 83550; 83605; 83690; 83735; 83880; 84100; 84439; 84443; 84481; 84484; 85025; 85044; 85610; 85730; 86705; 86709; 86803; 86850; 86900; 87040; 87070; 87086; 87340; 87493; 92610; 93005; 93306; 93970; 93971; 94002; 94003; 94640; 94664; 94667; 96365; 96366; 96375; 96376; 97163; 99291; A4216; A6261; C1725; C9113; J0330; J1650; J1953; J2060; J2250; J2270; J2370; J2543; J2704; J3010; J3370; J3480; J3490; J7042; J7050; J7060; J7620; Q9967; A4315